=== PATIENT | female | born 1935 | race Caucasian/White ===

== ENCOUNTER 2017-04-30 20:53 | Inpatient (IN) | payer MEDICARE, MEDICAID ==
[~2017-04-30] VITALS: Ht 162.6 cm; Wt 65.0 kg
[~2017-04-30 20:53] MED LIST: FLO0.4C PO; GLIM1TAB46 PO; LOSA25TA96 PO; OXYB5TAB11 PO
[2017-04-30 21:36] LABS: BASOPHILS % (AUTO) 0.3 % (0-1); EOSINOPHILS # (AUTO) 0.2 X10'3 (0-0.9); EOSINOPHILS % (AUTO) 1.9 % (0-6); HEMOGLOBIN 11.4 g/dl (12.0-16.0); LYMPHOCYTES # (AUTO) 1.7 X10'3 (1.1-4.8); LYMPHOCYTES % (AUTO) 14.6 % (21-51); MEAN CORPUSCULAR HEMOGLOBIN 29.7 PG (27.0-31.0); MEAN CORPUSCULAR HGB CONC 34.7 % (33.0-36.5); MEAN CORPUSCULAR VOLUME 85.5 FL (78-98); MEAN PLATELET VOLUME 8.9 FL (7.4-10.4); MONOCYTES % (AUTO) 8.7 % (2-12); NEUTROPHILS # (AUTO) 8.9 X10'3 (1.8-7.7); NEUTROPHILS % (AUTO) 74.5 % (42-75); PLATELET COUNT 197 X10'3 (140-440); RED BLOOD COUNT 3.86 X10'6 (4.20-5.60); RED CELL DISTRIBUTION WIDTH 13.3 % (11.5-14.5); WHITE BLOOD COUNT 11.9 X10'3 (4.5-11.0)
[2017-04-30 21:48] LABS: INR 2.5 INR; PARTIAL THROMBOPLASTIN TIME 39 SECONDS (22-32); PROTHROMBIN TIME 25.4 SECONDS (9.0-12.0)
[2017-04-30] MEDS ORDERED: nitroGLYCERIN 0.4mg/hour patch TD ONE (21:50)
[2017-04-30] MEDS ORDERED: aspirin 81mg tab.chew PO ONE (21:50)
[2017-04-30] MEDS ORDERED: normal saline 1000ML IV soln IVB ONE (21:50)
[2017-04-30 21:52] LABS: ALANINE AMINOTRANSFERASE 23 U/L (12-78); ALBUMIN 3.8 G/DL (3.4-5.0); ALKALINE PHOSPHATASE 47 IU/L (46-116); ANION GAP 9 (8-16); ASPARTATE AMINO TRANSFERASE 16 U/L (10-37); BILIRUBIN,TOTAL 0.4 MG/DL (0.1-1.0); BLOOD UREA NITROGEN 35 MG/DL (7-18); BUN/CREATININE RATIO 19.2 (6.6-38.0); CALCIUM 8.7 MG/DL (8.5-10.1); CHLORIDE 100 MMOL/L (99-107); CREATININE 1.82 MG/DL (0.40-0.90); GLUCOSE 111 MG/DL (70-104); SODIUM 135 MMOL/L (135-145); TOTAL CARBON DIOXIDE 25.6 MMOL/L (24-32); TOTAL PROTEIN 7.8 G/DL (6.4-8.2); eGFR 27 ML/MIN
[2017-04-30 21:59] LABS: POTASSIUM 4.6 MMOL/L (3.5-5.1)
[2017-04-30] MEDS ORDERED: SITA25TA3 PO (22:59)
[2017-04-30] MEDS ORDERED: CLOP75TA35 PO (23:00)
[2017-04-30] MEDS ORDERED: ROSU5TAB PO (23:02)
[2017-04-30] MEDS ORDERED: COU2.5T PO (23:03)
[2017-04-30] MEDS ORDERED: MULT-933 PO (23:04)
[2017-04-30] MEDS ORDERED: DOCU100P (23:05)
[2017-04-30] MEDS ORDERED: KRIL1CAP22 (23:06)
[2017-04-30] MEDS ORDERED: ASCO500C15 PO (23:07)
[2017-04-30] MEDS ORDERED: LUTE20CA PO (23:08)
[2017-05-01] MEDS ORDERED: magnesium hydroxide 30ml (MOM) UD suspension PO PRN (00:50)
[2017-05-01] MEDS ORDERED: acetaminophen 325mg tablet PO PRN (00:50)
[2017-05-01] MEDS ORDERED: mag hydrox/Alum hydrox/simeth 30ml oral suspension PO PRN (00:50)
[2017-05-01] MEDS ORDERED: ondansetron/PF 4mg/2ml inj IV PRN (00:50)
[2017-05-01] MEDS ORDERED: OXYB5TAB29 PO (06:34)
[2017-05-01] MEDS ORDERED: heparin, porcine 5000 units/ml vial SQ SCH (08:00)
[2017-05-01] MEDS ORDERED: aminophylline 250mg/10ml inj. IV PRN (08:50)
[2017-05-01] MEDS ORDERED: metoprolol tartrate 1mg/ml inj IV PRN (08:50)
[2017-05-01] MEDS ORDERED: nitroGLYCERIN 0.4mg SUBLingual tab SL PRN (08:50)
[2017-05-01] MEDS ORDERED: regadenoson 0.4mg/5ml syringe IV ONE (08:50)
[2017-05-01] MEDS: losartan 25mg tablet PO SCH (09:20)
[2017-05-01] MEDS: atorvastatin 20mg tablet PO SCH (09:20)
[2017-05-01] MEDS: multivitamins, therapeutics tablet PO SCH (09:20)
[2017-05-01] MEDS: clopidogrel 75mg tablet PO SCH (09:20)
[2017-05-01] MEDS: ascorbic acid 500mg tablet PO SCH ×2 (09:48→20:06)
[2017-05-01] MEDS: linagliptin 5mg tablet PO SCH (09:48)
[2017-05-01 10:46] LABS: HEMOGLOBIN A1C 5.6 % (4.5-6.2)
[2017-05-01 13:30] VITALS: BP 155/72
[2017-05-01 15:00] VITALS: BP 92/70
[2017-05-01] MEDS: normal saline 1000ml 1,000 ML IV SCH (17:33)
[2017-05-01 19:00] VITALS: BP 151/50
[2017-05-01] MEDS: tamsulosin 0.4mg capsule PO SCH (20:10)
[2017-05-01] MEDS: oxybutynin 5mg tablet PO SCH (20:10)
[2017-05-01] MEDS ORDERED: warfarin 2.5mg tablet PO SCH (21:00)
[2017-05-01 23:00] VITALS: BP 166/71
[2017-05-02] VITALS (13 sets, daily range): BP systolic 124–199; BP diastolic 44–96
[2017-05-02] MEDS: normal saline 1000ml 1,000 ML IV SCH ×2 (05:50→19:10)
[2017-05-02 06:40] LABS: BASOPHILS % (AUTO) 0.3 % (0-1); EOSINOPHILS # (AUTO) 0.1 X10'3 (0-0.9); HEMATOCRIT 29.6 % (35.0-45.0); HEMOGLOBIN 10.2 g/dl (12.0-16.0); LYMPHOCYTES # (AUTO) 1.2 X10'3 (1.1-4.8); LYMPHOCYTES % (AUTO) 18.4 % (21-51); MEAN CORPUSCULAR HEMOGLOBIN 29.5 PG (27.0-31.0); MEAN CORPUSCULAR HGB CONC 34.6 % (33.0-36.5); MEAN CORPUSCULAR VOLUME 85.3 FL (78-98); MONOCYTES # (AUTO) 0.7 X10'3 (0-0.9); MONOCYTES % (AUTO) 10.4 % (2-12); NEUTROPHILS # (AUTO) 4.4 X10'3 (1.8-7.7); NEUTROPHILS % (AUTO) 68.9 % (42-75); PLATELET COUNT 168 X10'3 (140-440); RED BLOOD COUNT 3.46 X10'6 (4.20-5.60); RED CELL DISTRIBUTION WIDTH 13.3 % (11.5-14.5); WHITE BLOOD COUNT 6.4 X10'3 (4.5-11.0)
[2017-05-02 06:51] LABS: INR 1.3 INR; PROTHROMBIN TIME 13.3 SECONDS (9.0-12.0)
[2017-05-02 06:53] LABS: ALANINE AMINOTRANSFERASE 21 U/L (12-78); ALBUMIN 3.2 G/DL (3.4-5.0); ALBUMIN/GLOBULIN RATIO 0.9 (1.1-1.5); ALKALINE PHOSPHATASE 39 IU/L (46-116); ANION GAP 10 (8-16); ASPARTATE AMINO TRANSFERASE 13 U/L (10-37); BILIRUBIN,TOTAL 0.6 MG/DL (0.1-1.0); BLOOD UREA NITROGEN 33 MG/DL (7-18); BUN/CREATININE RATIO 18.6 (6.6-38.0); CALCIUM 8.2 MG/DL (8.5-10.1); CHLORIDE 104 MMOL/L (99-107); CREATININE 1.77 MG/DL (0.40-0.90); GLUCOSE 110 MG/DL (70-104); POTASSIUM 4.6 MMOL/L (3.5-5.1); SODIUM 136 MMOL/L (135-145); TOTAL CARBON DIOXIDE 22.3 MMOL/L (24-32); TOTAL PROTEIN 6.7 G/DL (6.4-8.2); eGFR 27 ML/MIN
[2017-05-02] MEDS: losartan 25mg tablet PO SCH (07:51)
[2017-05-02] MEDS: linagliptin 5mg tablet PO SCH (07:51)
[2017-05-02] MEDS: multivitamins, therapeutics tablet PO SCH (07:51)
[2017-05-02] MEDS: ascorbic acid 500mg tablet PO SCH ×2 (07:51→19:01)
[2017-05-02] MEDS: atorvastatin 20mg tablet PO SCH (07:51)
[2017-05-02] MEDS: clopidogrel 75mg tablet PO SCH (07:51)
[2017-05-02] MEDS: oxybutynin 5mg tablet PO SCH ×2 (07:51→19:01)
[2017-05-02] MEDS ORDERED: regadenoson 0.4mg/5ml syringe IV ONE ×2 (08:00→09:56)
[2017-05-02] MEDS ORDERED: aminophylline inj. 0 ML IV ONE (09:56)
[2017-05-02 13:54] LABS: INR 1.3 INR; PROTHROMBIN TIME 12.9 SECONDS (9.0-12.0)
[2017-05-02] MEDS: tamsulosin 0.4mg capsule PO SCH (19:01)
[2017-05-02] MEDS ORDERED: warfarin 5mg tablet PO ONE (21:00)
[2017-05-03] VITALS (14 sets, daily range): BP systolic 110–199; BP diastolic 44–91
[2017-05-03 04:21] LABS: BASOPHILS % (AUTO) 0.4 % (0-1); EOSINOPHILS # (AUTO) 0.2 X10'3 (0-0.9); EOSINOPHILS % (AUTO) 2.4 % (0-6); HEMOGLOBIN 10.8 g/dl (12.0-16.0); LYMPHOCYTES # (AUTO) 1.3 X10'3 (1.1-4.8); MEAN CORPUSCULAR HEMOGLOBIN 29.4 PG (27.0-31.0); MEAN CORPUSCULAR HGB CONC 34.7 % (33.0-36.5); MEAN CORPUSCULAR VOLUME 84.8 FL (78-98); MEAN PLATELET VOLUME 8.5 FL (7.4-10.4); MONOCYTES # (AUTO) 0.6 X10'3 (0-0.9); NEUTROPHILS # (AUTO) 5.1 X10'3 (1.8-7.7); NEUTROPHILS % (AUTO) 71.2 % (42-75); PLATELET COUNT 184 X10'3 (140-440); RED BLOOD COUNT 3.65 X10'6 (4.20-5.60); RED CELL DISTRIBUTION WIDTH 13.6 % (11.5-14.5); WHITE BLOOD COUNT 7.2 X10'3 (4.5-11.0)
[2017-05-03 04:30] LABS: INR 1.2 INR; PROTHROMBIN TIME 12.1 SECONDS (9.0-12.0)
[2017-05-03 04:41] LABS: ALANINE AMINOTRANSFERASE 23 U/L (12-78); ALBUMIN 3.4 G/DL (3.4-5.0); ALBUMIN/GLOBULIN RATIO 0.9 (1.1-1.5); ALKALINE PHOSPHATASE 42 IU/L (46-116); ANION GAP 11 (8-16); ASPARTATE AMINO TRANSFERASE 17 U/L (10-37); BILIRUBIN,TOTAL 0.5 MG/DL (0.1-1.0); BLOOD UREA NITROGEN 34 MG/DL (7-18); CALCIUM 8.1 MG/DL (8.5-10.1); CHLORIDE 102 MMOL/L (99-107); CREATININE 1.79 MG/DL (0.40-0.90); GLUCOSE 106 MG/DL (70-104); POTASSIUM 4.4 MMOL/L (3.5-5.1); SODIUM 134 MMOL/L (135-145); TOTAL CARBON DIOXIDE 21.1 MMOL/L (24-32); eGFR 27 ML/MIN
[2017-05-03] MEDS ORDERED: fentaNYL/PF 50MCG/1 ML 2ML syringe ONE (07:28)
[2017-05-03] MEDS ORDERED: midazolam 2 mg/2 ml injection ONE (07:29)
[2017-05-03] MEDS ORDERED: LIDOcaine 1%/PF (10mg/ml) 5ml vial ONE (07:29)
[2017-05-03] MEDS ORDERED: iohexol 350MG/ML 100ml bottle IV ONE (07:29)
[2017-05-03] MEDS: losartan 25mg tablet PO SCH (07:40)
[2017-05-03] MEDS: multivitamins, therapeutics tablet PO SCH (07:40)
[2017-05-03] MEDS: atorvastatin 20mg tablet PO SCH (07:40)
[2017-05-03] MEDS: ascorbic acid 500mg tablet PO SCH ×2 (07:40→19:37)
[2017-05-03] MEDS: linagliptin 5mg tablet PO SCH (07:40)
[2017-05-03] MEDS: oxybutynin 5mg tablet PO SCH ×2 (07:40→19:37)
[2017-05-03] MEDS: clopidogrel 75mg tablet PO SCH (07:40)
[2017-05-03] MEDS ORDERED: acetylcysteine 200 MG/ml 4ml vial PO STA (07:47)
[2017-05-03] MEDS: normal saline 1000ml 1,000 ML IV SCH (09:13)
[2017-05-03] MEDS ORDERED: ondansetron/PF 4mg/2ml inj IV PRN (09:45)
[2017-05-03] MEDS ORDERED: OXAZEpam 15mg capsule PO PRN (09:45)
[2017-05-03] MEDS: acetylcysteine 200 MG/ml 4ml vial PO SCH (19:38)
[2017-05-03] MEDS: tamsulosin 0.4mg capsule PO SCH (20:43)
[2017-05-03] MEDS ORDERED: warfarin 3mg tablet PO ONE (21:00)
[2017-05-04 07:00] VITALS: BP 113/35
[2017-05-04 07:11] LABS: BASOPHILS % (AUTO) 0.2 % (0-1); EOSINOPHILS # (AUTO) 0.2 X10'3 (0-0.9); HEMATOCRIT 31.8 % (35.0-45.0); HEMOGLOBIN 11.1 g/dl (12.0-16.0); LYMPHOCYTES # (AUTO) 1.6 X10'3 (1.1-4.8); LYMPHOCYTES % (AUTO) 21.5 % (21-51); MEAN CORPUSCULAR HEMOGLOBIN 29.7 PG (27.0-31.0); MEAN CORPUSCULAR HGB CONC 34.8 % (33.0-36.5); MEAN CORPUSCULAR VOLUME 85.3 FL (78-98); MEAN PLATELET VOLUME 8.9 FL (7.4-10.4); MONOCYTES # (AUTO) 0.8 X10'3 (0-0.9); MONOCYTES % (AUTO) 10.5 % (2-12); NEUTROPHILS % (AUTO) 65.8 % (42-75); PLATELET COUNT 190 X10'3 (140-440); RED BLOOD COUNT 3.73 X10'6 (4.20-5.60); RED CELL DISTRIBUTION WIDTH 13.6 % (11.5-14.5); WHITE BLOOD COUNT 7.6 X10'3 (4.5-11.0)
[2017-05-04 07:21] LABS: INR 1.1 INR; PROTHROMBIN TIME 11.1 SECONDS (9.0-12.0)
[2017-05-04 07:39] LABS: GLUCOSE 114 MG/DL (70-104)
[2017-05-04 07:40] LABS: ALANINE AMINOTRANSFERASE 23 U/L (12-78); ALBUMIN 3.5 G/DL (3.4-5.0); ALBUMIN/GLOBULIN RATIO 0.9 (1.1-1.5); ALKALINE PHOSPHATASE 46 IU/L (46-116); ANION GAP 13 (8-16); ASPARTATE AMINO TRANSFERASE 18 U/L (10-37); BILIRUBIN,TOTAL 0.5 MG/DL (0.1-1.0); BLOOD UREA NITROGEN 31 MG/DL (7-18); BUN/CREATININE RATIO 16.4 (6.6-38.0); CALCIUM 8.4 MG/DL (8.5-10.1); CHLORIDE 98 MMOL/L (99-107); CREATININE 1.89 MG/DL (0.40-0.90); POTASSIUM 4.1 MMOL/L (3.5-5.1); SODIUM 132 MMOL/L (135-145); TOTAL CARBON DIOXIDE 21.2 MMOL/L (24-32); TOTAL PROTEIN 7.2 G/DL (6.4-8.2); eGFR 25 ML/MIN
[2017-05-04] MEDS: atorvastatin 20mg tablet PO SCH (07:48)
[2017-05-04] MEDS: clopidogrel 75mg tablet PO SCH (07:48)
[2017-05-04] MEDS: linagliptin 5mg tablet PO SCH (07:48)
[2017-05-04] MEDS: ascorbic acid 500mg tablet PO SCH (07:49)
[2017-05-04] MEDS: oxybutynin 5mg tablet PO SCH (07:49)
[2017-05-04] MEDS: losartan 25mg tablet PO SCH (07:49)
[2017-05-04] MEDS: acetylcysteine 200 MG/ml 4ml vial PO SCH (07:49)
[2017-05-04] MEDS: multivitamins, therapeutics tablet PO SCH (07:49)
[2017-05-04] MEDS ORDERED: warfarin 4mg tablet PO ONE (21:00)
== END 2017-05-04 12:50 | disposition home or self-care (01) | DRG 287 ==
LOC: ER 20:54 → ED HOLD 05-01 00:48 → PCU 3S 05-01 13:25
PROVIDERS: ADMIT Internal Medicine; ATTEND Internal Medicine
PROC: 3E073KZ Introduction of Other Diagnostic Substance into Coronary Artery, Percutaneous Approach (ICD-10-PCS; 2017-05-02)
PROC: 4A02XM4 Measurement of Cardiac Total Activity, External Approach (ICD-10-PCS; 2017-05-02)
PROC: 4A023N7 Measurement of Cardiac Sampling and Pressure, Left Heart, Percutaneous Approach (ICD-10-PCS; principal; 2017-05-03)
PROC: B2111ZZ Fluoroscopy of Multiple Coronary Arteries using Low Osmolar Contrast (ICD-10-PCS; 2017-05-03)
DX: I25.110 Atherosclerotic heart disease of native coronary artery with unstable angina pectoris (principal); E11.22 Type 2 diabetes mellitus with diabetic chronic kidney disease; N18.4 Chronic kidney disease, stage 4 (severe); E11.51 Type 2 diabetes mellitus with diabetic peripheral angiopathy without gangrene; M19.90 Unspecified osteoarthritis, unspecified site; R94.39 Abnormal result of other cardiovascular function study; D64.9 Anemia, unspecified; E78.00 Pure hypercholesterolemia, unspecified; I34.0 Nonrheumatic mitral (valve) insufficiency; I35.1 Nonrheumatic aortic (valve) insufficiency; E78.5 Hyperlipidemia, unspecified; I12.9 Hypertensive chronic kidney disease with stage 1 through stage 4 chronic kidney disease, or unspecified chronic kidney disease; J44.9 Chronic obstructive pulmonary disease, unspecified; Z90.710 Acquired absence of both cervix and uterus; Z90.49 Acquired absence of other specified parts of digestive tract; Z95.0 Presence of cardiac pacemaker; Z88.1 Allergy status to other antibiotic agents; Z88.8 Allergy status to other drugs, medicaments and biological substances; Z79.01 Long term (current) use of anticoagulants; Z79.84 Long term (current) use of oral hypoglycemic drugs; Z79.899 Other long term (current) drug therapy; Z87.891 Personal history of nicotine dependence; Z86.73 Personal history of transient ischemic attack (TIA), and cerebral infarction without residual deficits
CPT/HCPCS: 36415; 71045; 78451; 80053; 83036; 84484; 85025; 85610; 85730; 87070; 93005; 93017; 93306; 93458; 99152; 99285; A4620; A6257; A9500; C1769; J0280; J1644; J2001; J2250; J3010; J7030; Q9967

== ENCOUNTER 2017-05-06 15:53 | Outpatient (CLI) | payer MEDICARE, MEDICAID ==
[~2017-05-06 15:53] MED LIST changes: +ASCO500C15 PO; +CLOP75TA35 PO; +COU2.5T PO; +DOCU100P; -GLIM1TAB46 PO; +KRIL1CAP22; +LUTE20CA PO; +MULT-933 PO; -OXYB5TAB11 PO; +OXYB5TAB29 PO; +ROSU5TAB PO; +SITA25TA3 PO
[2017-05-06 16:40] LABS: BASOPHILS % (AUTO) 0.2 % (0-1); EOSINOPHILS # (AUTO) 0.1 X10'3 (0-0.9); EOSINOPHILS % (AUTO) 1.9 % (0-6); HEMATOCRIT 29.7 % (35.0-45.0); HEMOGLOBIN 10.3 g/dl (12.0-16.0); LYMPHOCYTES # (AUTO) 1.4 X10'3 (1.1-4.8); LYMPHOCYTES % (AUTO) 23.3 % (21-51); MEAN CORPUSCULAR HEMOGLOBIN 29.6 PG (27.0-31.0); MEAN CORPUSCULAR HGB CONC 34.8 % (33.0-36.5); MEAN PLATELET VOLUME 9.2 FL (7.4-10.4); MONOCYTES # (AUTO) 0.7 X10'3 (0-0.9); MONOCYTES % (AUTO) 10.9 % (2-12); NEUTROPHILS # (AUTO) 3.9 X10'3 (1.8-7.7); NEUTROPHILS % (AUTO) 63.7 % (42-75); PLATELET COUNT 204 X10'3 (140-440); RED BLOOD COUNT 3.49 X10'6 (4.20-5.60); RED CELL DISTRIBUTION WIDTH 13.9 % (11.5-14.5); WHITE BLOOD COUNT 6.1 X10'3 (4.5-11.0)
[2017-05-06 16:45] LABS: ALBUMIN 3.5 G/DL (3.4-5.0); ANION GAP 12 (8-16); BLOOD UREA NITROGEN 37 MG/DL (7-18); BUN/CREATININE RATIO 18.1 (6.6-38.0); CALCIUM 8.8 MG/DL (8.5-10.1); CHLORIDE 99 MMOL/L (99-107); CREATININE 2.04 MG/DL (0.40-0.90); GLUCOSE 105 MG/DL (70-104); POTASSIUM 4.4 MMOL/L (3.5-5.1); SODIUM 134 MMOL/L (135-145); TOTAL CARBON DIOXIDE 23.5 MMOL/L (24-32); eGFR 23 ML/MIN
== END 2017-05-06 23:59 | disposition home or self-care (01) ==
LOC: LAB 15:53
PROVIDERS: ATTEND Internal Medicine
DX: I20.9 Angina pectoris, unspecified (principal)
CPT/HCPCS: 36415; 80048; 85025

== ENCOUNTER 2018-06-10 13:45 | Emergency (ER) | payer MEDICARE, MEDICAID ==
[~2018-06-10] VITALS: Ht 162.6 cm; Wt 67.3 kg
[~2018-06-10 13:45] MED LIST changes: -KRIL1CAP22; +KRIL1CAP22 PO
[2018-06-10 14:13] VITALS: BP 120/50
[2018-06-10] MEDS ORDERED: TRAZ-219 PO (15:22)
[2018-06-10] MEDS ORDERED: ATOR20TA66 PO (15:22)
[2018-06-10] MEDS ORDERED: METO25TA6 PO (15:25)
[2018-06-10] MEDS ORDERED: METO50TA17 PO (15:39)
[2018-06-10] MEDS ORDERED: DOCU-28 PO (15:39)
[2018-06-10 15:55] LABS: BASOPHILS % (AUTO) 0.3 % (0-1); EOSINOPHILS # (AUTO) 0.1 X10'3 (0-0.9); EOSINOPHILS % (AUTO) 0.8 % (0-6); LYMPHOCYTES # (AUTO) 0.9 X10'3 (1.1-4.8); LYMPHOCYTES % (AUTO) 9.8 % (21-51); MEAN CORPUSCULAR HEMOGLOBIN 28.7 PG (27.0-31.0); MEAN CORPUSCULAR HGB CONC 33.5 g/dL (33.0-36.5); MEAN CORPUSCULAR VOLUME 85.9 FL (78-98); MEAN PLATELET VOLUME 7.9 FL (7.4-10.4); MONOCYTES # (AUTO) 0.8 X10'3 (0-0.9); MONOCYTES % (AUTO) 9.1 % (2-12); NEUTROPHILS # (AUTO) 7.1 X10'3 (1.8-7.7); PLATELET COUNT 299 X10'3 (140-440); RED BLOOD COUNT 3.14 X10'6 (4.20-5.60); RED CELL DISTRIBUTION WIDTH 14.8 % (11.5-14.5); WHITE BLOOD COUNT 8.9 X10'3 (4.5-11.0)
[2018-06-10 16:09] LABS: ALANINE AMINOTRANSFERASE 17 U/L (12-78); ALBUMIN/GLOBULIN RATIO 0.7 (1.1-1.5); ALKALINE PHOSPHATASE 50 IU/L (46-116); ANION GAP 6 (8-16); ASPARTATE AMINO TRANSFERASE 16 U/L (10-37); BILIRUBIN,TOTAL 0.2 MG/DL (0.1-1.0); BLOOD UREA NITROGEN 36 MG/DL (7-18); BUN/CREATININE RATIO 14.1 (6.6-38.0); CALCIUM 8.9 MG/DL (8.5-10.1); CHLORIDE 100 MMOL/L (99-107); CREATININE 2.55 MG/DL (0.40-0.90); POTASSIUM 4.7 MMOL/L (3.5-5.1); SODIUM 133 MMOL/L (135-145); TOTAL CARBON DIOXIDE 26.8 MMOL/L (24-32); TOTAL PROTEIN 7.5 G/DL (6.4-8.2); eGFR 18 ML/MIN
[2018-06-10 16:12] LABS: GLUCOSE 121 MG/DL (70-104)
[2018-06-10 16:18] LABS: PROTHROMBIN TIME 71.3 SECONDS (9.0-12.0)
[2018-06-10 16:21] LABS: INR 7.9 INR
[2018-06-10] MEDS ORDERED: phytonadione inj. 5 MG in normal saline 100ml IV soln 99.5 ML IV ONE (16:45)
[2018-06-10] MEDS ORDERED: normal saline 1000ML IV soln IVB ONE (16:45)
--- NOTE | 2018-06-10 18:50 | NUR ---
Note pete in EDM - 06/10/18 at 1851 by ZAMZAM Patient refused strait cath at this time. State " you can take it from the diaper". No new orders.
--- NOTE | 2018-06-10 18:51 | NUR ---
Patient refused strait cath at this time. State " you can take it from the diaper". No new orders.
--- NOTE | 2018-06-10 19:03 | NUR ---
pt is refusing care - stating "I am not staying here, I want to go home" - PA aware and will speak with pt and visitor at bedside.
--- NOTE | 2018-06-10 19:09 | NUR ---
PA spoke with and they desire to leave at this time. pt will be placed up for D\C -
== END 2018-06-10 19:30 | disposition home or self-care (01) ==
LOC: ER 13:47
DX: D68.69 Other thrombophilia (principal); F03.90 Unspecified dementia, unspecified severity, without behavioral disturbance, psychotic disturbance, mood disturbance, and anxiety; I25.10 Atherosclerotic heart disease of native coronary artery without angina pectoris; E78.00 Pure hypercholesterolemia, unspecified; I12.9 Hypertensive chronic kidney disease with stage 1 through stage 4 chronic kidney disease, or unspecified chronic kidney disease; E11.22 Type 2 diabetes mellitus with diabetic chronic kidney disease; N18.9 Chronic kidney disease, unspecified; M19.90 Unspecified osteoarthritis, unspecified site; I48.91 Unspecified atrial fibrillation; Z90.49 Acquired absence of other specified parts of digestive tract; Z90.710 Acquired absence of both cervix and uterus; Z95.0 Presence of cardiac pacemaker; Z98.890 Other specified postprocedural states; Z86.73 Personal history of transient ischemic attack (TIA), and cerebral infarction without residual deficits; Z88.1 Allergy status to other antibiotic agents; Z88.8 Allergy status to other drugs, medicaments and biological substances; Z79.01 Long term (current) use of anticoagulants; Z79.899 Other long term (current) drug therapy
CPT/HCPCS: 36415; 80053; 85025; 85610; 93005; 96365; 99284; J3430; J7030

== ENCOUNTER 2019-08-19 11:41 | Inpatient (IN) | payer MEDICARE, OTHER ==
[~2019-08-19] VITALS: Ht 162.6 cm; Wt 63.6 kg
[~2019-08-19 11:41] MED LIST changes: +ATOR20TA66 PO; +DOCU-28 PO; -DOCU100P; -LOSA25TA96 PO; +METO50TA17 PO; -ROSU5TAB PO; +TRAZ-256 PO
[2019-08-19 12:28] LABS: BASOPHILS % (AUTO) 0.4 % (0-1); EOSINOPHILS # (AUTO) 0.1 X10'3 (0-0.9); EOSINOPHILS % (AUTO) 0.6 % (0-6); LYMPHOCYTES # (AUTO) 0.8 X10'3 (1.1-4.8); LYMPHOCYTES % (AUTO) 9.6 % (21-51); MEAN CORPUSCULAR HEMOGLOBIN 28.1 PG (27.0-31.0); MEAN CORPUSCULAR HGB CONC 33.2 g/dL (33.0-36.5); MEAN CORPUSCULAR VOLUME 84.7 FL (78-98); MEAN PLATELET VOLUME 8.7 FL (7.4-10.4); MONOCYTES # (AUTO) 0.9 X10'3 (0-0.9); MONOCYTES % (AUTO) 10.8 % (2-12); NEUTROPHILS # (AUTO) 6.2 X10'3 (1.8-7.7); NEUTROPHILS % (AUTO) 78.6 % (42-75); PLATELET COUNT 194 X10'3 (140-440); RED BLOOD COUNT 2.16 X10'6 (4.20-5.60); RED CELL DISTRIBUTION WIDTH 14.9 % (11.5-14.5); WHITE BLOOD COUNT 7.9 X10'3 (4.5-11.0)
[2019-08-19 12:31] LABS: HEMATOCRIT 18.3 % (35.0-45.0); HEMOGLOBIN 6.1 g/dl (12.0-16.0)
[2019-08-19 12:45] LABS: ALANINE AMINOTRANSFERASE 19 U/L (12-78); ALBUMIN 2.3 G/DL (3.4-5.0); ALBUMIN/GLOBULIN RATIO 0.5 (1.1-1.5); ALKALINE PHOSPHATASE 46 IU/L (46-116); ANION GAP 5 (8-16); ASPARTATE AMINO TRANSFERASE 16 U/L (10-37); BILIRUBIN,TOTAL 0.3 MG/DL (0.1-1.0); BLOOD UREA NITROGEN 41 MG/DL (7-18); BUN/CREATININE RATIO 13.7 (6.6-38.0); CALCIUM 8.5 MG/DL (8.5-10.1); CHLORIDE 102 MMOL/L (99-107); CREATININE 2.99 MG/DL (0.40-0.90); GLUCOSE 128 MG/DL (70-104); LIPASE 143 U/L (73-393); SODIUM 132 MMOL/L (135-145); TOTAL CARBON DIOXIDE 24.8 MMOL/L (24-32); TOTAL PROTEIN 6.6 G/DL (6.4-8.2); eGFR 15 ML/MIN
[2019-08-19] MEDS ORDERED: normal saline 1000ML IV soln IVB ONE (13:05)
[2019-08-19] MEDS ORDERED: CefTRIAXone/D5W-Rocephin 1gm 50 ML IV ONE (14:20)
[2019-08-19 14:33] LABS: CLARITY,URINE CLEAR (Clear); COLOR,URINE STRAW (Yellow); GLUCOSE, URINE NEGATIVE (Neg); KETONES,URINE NEGATIVE (Neg); LEUKOCYTE ESTERASE ,URINE TRACE (Neg); NITRITES, URINE NEGATIVE (Neg); OCCULT BLOOD,URINE NEGATIVE (Neg); PROTEIN,URINE NEGATIVE (Neg); UROBILINOGEN,URINE 0.2 E.U/dL (0.2-1.0)
[2019-08-19 14:44] LABS: UA COLLECTION TYPE STRAIGHT CATH
[2019-08-19 15:03] LABS: MUCUS STRANDS NONE SEEN /LPF (Neg); SQUAMOUS EPITHELIAL CELL,UR FEW /LPF (FEW); TRANSITIONAL EPI CELLS,URINE FEW /HPF
[2019-08-19 15:05] LABS: BACTERIA,URINE FEW /HPF (Neg); RBC,URINE 0-2 /HPF (0-2); WBC,URINE 0-4 /HPF (0-4)
[2019-08-19] MEDS ORDERED: epoetin 20,000 units/ml inj SQ ONE (15:25)
[2019-08-19] MEDS ORDERED: pantoprazole 40 MG vial IV ONE (15:35)
[2019-08-19] MEDS ORDERED: pantoprazole 40MG/NS 100ML BAG 100 ML IV ONE (15:35)
[2019-08-19 15:41] LABS: OCCULT BLOOD STOOL POSITIVE (Neg)
[2019-08-19] MEDS ORDERED: WARF3TAB56 PO (16:14)
[2019-08-19] MEDS ORDERED: VITA400T10 PO (16:14)
[2019-08-19] MEDS ORDERED: morphine 2 MG/ML inj. syringe IV PRN (16:15)
[2019-08-19] MEDS ORDERED: magnesium hydroxide 30ml (MOM) UD suspension PO PRN (16:15)
[2019-08-19] MEDS ORDERED: ondansetron/PF 4mg/2ml inj IV PRN (16:15)
[2019-08-19] MEDS ORDERED: potassium CL 10mEq/100ml bag 100 ML IV PRN ×2 (16:15)
[2019-08-19] MEDS ORDERED: acetaminophen 325mg tablet PO PRN ×2 (16:15)
[2019-08-19] MEDS ORDERED: magnesium 2GM in 50ml NS 50 ML IV PRN (16:15)
[2019-08-19] MEDS ORDERED: magnesium Cl slow-release 64mg tablet PO PRN (16:15)
[2019-08-19] MEDS ORDERED: potassium Cl 20 mEq SR tablet PO PRN ×2 (16:15)
[2019-08-19] MEDS ORDERED: magnesium 4gm in 100ml NS 100 ML IV PRN (16:15)
[2019-08-19] MEDS ORDERED: HYDROcodone/acetaminophen 5mg/325mg tablet PO PRN (16:15)
[2019-08-19] MEDS ORDERED: mag hydrox/Alum hydrox/simeth 30ml oral suspension PO PRN (16:15)
[2019-08-19] MEDS ORDERED: MESSAGE TO PHARMACY PO ONE (16:45)
[2019-08-19] MEDS ORDERED: dextrose ORAL solution 15 GM/59 ML bottle PO PRN ×2 (16:45)
[2019-08-19] MEDS ORDERED: glucagon, human recombinant 1mg kit SUBCUT PRN (16:45)
[2019-08-19] MEDS ORDERED: dextrose 50%-water 50ml dispensing syringe IV PRN ×2 (16:45)
[2019-08-19] MEDS ORDERED: insulin Lispro (HumaLOG) vial - multi-dose SQ SCH (16:45)
[2019-08-19 16:55] LABS: % IRON SATURATION 6 % (11-46); IRON 15 UG/DL (49-151); TOTAL IRON BINDING CAPACITY 248 UG/DL (259-388)
[2019-08-19 17:14] LABS: FERRITIN 14 NG/ML (8-252)
[2019-08-19 17:32] LABS: HEMOGLOBIN A1C 5.9 % (4.5-6.2)
[2019-08-19] MEDS: normal saline 1000ml 1,000 ML IV SCH (19:37)
[2019-08-19] MEDS ORDERED: docusate sodium 100mg/10ml UD cup PO SCH (20:00)
[2019-08-19] MEDS: K and/or MAG REPLACEMENT MC SCH (20:00)
[2019-08-19] MEDS: pantoprazole 40 MG vial IV SCH (20:22)
[2019-08-19] MEDS: metoprolol tartrate 25mg tablet PO SCH (20:24)
[2019-08-19 21:00] VITALS: BP 140/48
[2019-08-19] MEDS ORDERED: temazepam 15mg capsule PO PRN (21:00)
[2019-08-19] MEDS: insulin glargine (Lantus) pen - multi-dose SQ SCH (21:00)
[2019-08-19] MEDS: tamsulosin 0.4mg capsule PO SCH (21:05)
[2019-08-19] MEDS: atorvastatin 20mg tablet PO SCH (21:05)
[2019-08-19 23:09] VITALS: BP 122/54
[2019-08-20] MEDS: normal saline 1000ml 1,000 ML IV SCH (05:20)
--- NOTE | 2019-08-20 06:19 | NUR ---
Patient in room PCU 3013. I have received report from HANSEL Reyes and had the opportunity to ask questions and assume patient care. Patient awake in bed and in no acute distress.
[2019-08-20 06:42] LABS: BASOPHILS % (AUTO) 0.5 % (0-1); EOSINOPHILS # (AUTO) 0.1 X10'3 (0-0.9); EOSINOPHILS % (AUTO) 1.1 % (0-6); LYMPHOCYTES # (AUTO) 0.9 X10'3 (1.1-4.8); MEAN CORPUSCULAR HEMOGLOBIN 28.3 PG (27.0-31.0); MEAN CORPUSCULAR HGB CONC 33.7 g/dL (33.0-36.5); MEAN PLATELET VOLUME 8.9 FL (7.4-10.4); MONOCYTES # (AUTO) 0.7 X10'3 (0-0.9); MONOCYTES % (AUTO) 12.1 % (2-12); NEUTROPHILS # (AUTO) 4.1 X10'3 (1.8-7.7); NEUTROPHILS % (AUTO) 71.3 % (42-75); PLATELET COUNT 160 X10'3 (140-440); RED CELL DISTRIBUTION WIDTH 14.9 % (11.5-14.5); WHITE BLOOD COUNT 5.8 X10'3 (4.5-11.0)
[2019-08-20 06:50] LABS: ALBUMIN 2.9 G/DL (3.4-5.0); ANION GAP 9 (8-16); BLOOD UREA NITROGEN 30 MG/DL (7-18); BUN/CREATININE RATIO 11.2 (6.6-38.0); CALCIUM 8.1 MG/DL (8.5-10.1); CHLORIDE 103 MMOL/L (99-107); CREATININE 2.67 MG/DL (0.40-0.90); GLUCOSE 109 MG/DL (70-104); MAGNESIUM 1.8 MG/DL (1.5-2.4); POTASSIUM 3.8 MMOL/L (3.5-5.1); SODIUM 134 MMOL/L (135-145); TOTAL CARBON DIOXIDE 21.6 MMOL/L (24-32); eGFR 17 ML/MIN
[2019-08-20 06:59] LABS: HEMOGLOBIN 5.4 g/dl (12.0-16.0)
[2019-08-20 07:00] VITALS: BP 132/38
--- NOTE | 2019-08-20 07:07 | NUR ---
Paged Dr. Serrano regarding patient's critical H&H of .06/23. PAGER ID: [phone] MESSAGE: [id number]. [place]. Critical Hgb 5.4, Hct 16. Patient is a Latter-day. Thank you. Jennifer HAMM x [phone]
[2019-08-20] MEDS: K and/or MAG REPLACEMENT MC SCH ×2 (08:00→19:52)
[2019-08-20] MEDS ORDERED: IRON SUCROSE COMPLEX IV ONE (08:30)
[2019-08-20] MEDS ORDERED: NORMAL SALINE IV ONE (08:30)
[2019-08-20] MEDS ORDERED: epoetin 20,000 units/ml inj SQ ONE (08:30)
[2019-08-20] MEDS: metoprolol tartrate 25mg tablet PO SCH ×2 (09:09→20:00)
[2019-08-20] MEDS: folic acid/vitamin B complex w/vitamin C 0.8mg tablet PO SCH (09:09)
[2019-08-20] MEDS: docusate sod 100mg capsule PO SCH ×2 (09:09→19:52)
[2019-08-20] MEDS: pantoprazole 40 MG vial IV SCH (09:13)
[2019-08-20] MEDS: traZODone 50mg tablet PO SCH (09:13)
[2019-08-20] MEDS ORDERED: furosemide 20 MG/2 ML vial IV ONE (10:50)
[2019-08-20 11:00] VITALS: BP_SYST 118; BP_SYST 127; BP_DIAS 27; BP_DIAS 41
--- NOTE | 2019-08-20 15:02 | NUR ---
Called Dr. Palencia regarding the patient's stating that Dr. Palencia wanted to talk to him.
[2019-08-20 15:26] LABS: BASOPHILS % (AUTO) 0.3 % (0-1); EOSINOPHILS % (AUTO) 0.6 % (0-6); LYMPHOCYTES # (AUTO) 0.7 X10'3 (1.1-4.8); MEAN CORPUSCULAR HEMOGLOBIN 28.5 PG (27.0-31.0); MEAN CORPUSCULAR HGB CONC 33.6 g/dL (33.0-36.5); MEAN CORPUSCULAR VOLUME 84.6 FL (78-98); MEAN PLATELET VOLUME 9.1 FL (7.4-10.4); MONOCYTES # (AUTO) 0.8 X10'3 (0-0.9); MONOCYTES % (AUTO) 12.5 % (2-12); NEUTROPHILS # (AUTO) 4.9 X10'3 (1.8-7.7); NEUTROPHILS % (AUTO) 75.6 % (42-75); PLATELET COUNT 170 X10'3 (140-440); RED BLOOD COUNT 1.87 X10'6 (4.20-5.60); RED CELL DISTRIBUTION WIDTH 14.9 % (11.5-14.5); WHITE BLOOD COUNT 6.5 X10'3 (4.5-11.0)
[2019-08-20 15:32] LABS: HEMATOCRIT 15.9 % (35.0-45.0); HEMOGLOBIN 5.3 g/dl (12.0-16.0)
--- NOTE | 2019-08-20 15:37 | NUR ---
Paged Dr. Serrano regarding critical H&H results. Hgb 5.3 and Hct 15.9. PAGER ID: [phone] MESSAGE: [id number]. Alissa Guevara. Critical Hgb 5.3, Hct 15.9. Thank you. Jennifer HAMM x [phone]
[2019-08-20 17:20] LABS: ABSOLUTE RETICS # 117900 /CUMM (23000-93000); RED BLOOD COUNT 1.95 X10'6 (4.20-5.60)
[2019-08-20 17:36] LABS: ANISOCYTOSIS 1+; MICROCYTOSIS 1+; PLATELET ESTIMATE NORMAL; POIKILOCYTOSIS FEW; TOTAL CELLS COUNTED 100
[2019-08-20 18:00] VITALS: BP 126/43
--- NOTE | 2019-08-20 18:07 | NUR ---
Patient in room PCU 3013. I have received report from Jennifer HAMM and had the opportunity to ask questions and assume patient care.
--- NOTE | 2019-08-20 18:07 | NUR ---
Problems reprioritized. Patient report given, questions answered & plan of care reviewed with HANSEL Echols. Patient stable at transfer of care.
[2019-08-20] MEDS: pantoprazole 40mg Tablet.DR PO SCH (20:00)
--- NOTE | 2019-08-20 20:52 | NUR ---
Page Sent PAGER ID: [phone] MESSAGE: Pt in [id number] Alissa Guevara 84 F here for severe anemia, ESRD. Pt refused all medications and FSBG, pt A&O x3- Onesimo 0115
--- NOTE | 2019-08-20 20:52 | NUR ---
patient refused all night time medications, and 2100 FSBG, pt A&O x3, attempted to education pt, pt refused education, states she wants to go home.
[2019-08-20] MEDS: tamsulosin 0.4mg capsule PO SCH (21:00)
[2019-08-20] MEDS: atorvastatin 20mg tablet PO SCH (21:00)
[2019-08-20] MEDS: insulin glargine (Lantus) pen - multi-dose SQ SCH (21:00)
[2019-08-20 22:00] VITALS: BP 157/61
--- NOTE | 2019-08-20 22:47 | NUR ---
pt agreed to checking FSBG, BG at 2247 was 133, pt continues to refuse medication and education.
--- NOTE | 2019-08-20 23:13 | NUR ---
Dr. Rich notified, pt refused all medications, no orders received.
[2019-08-21 02:00] VITALS: BP 125/43
[2019-08-21 06:15] LABS: BASOPHILS % (AUTO) 0.4 % (0-1); EOSINOPHILS # (AUTO) 0.1 X10'3 (0-0.9); EOSINOPHILS % (AUTO) 0.8 % (0-6); LYMPHOCYTES % (AUTO) 10.6 % (21-51); MEAN CORPUSCULAR HGB CONC 33.5 g/dL (33.0-36.5); MEAN CORPUSCULAR VOLUME 83.6 FL (78-98); MEAN PLATELET VOLUME 9.1 FL (7.4-10.4); MONOCYTES # (AUTO) 1.1 X10'3 (0-0.9); MONOCYTES % (AUTO) 12.4 % (2-12); NEUTROPHILS # (AUTO) 6.9 X10'3 (1.8-7.7); NEUTROPHILS % (AUTO) 75.8 % (42-75); PLATELET COUNT 187 X10'3 (140-440); RED BLOOD COUNT 2.09 X10'6 (4.20-5.60); RED CELL DISTRIBUTION WIDTH 14.8 % (11.5-14.5); WHITE BLOOD COUNT 9.1 X10'3 (4.5-11.0)
--- NOTE | 2019-08-21 06:15 | NUR ---
Patient in room PCU 3013. I have received report from HANSEL Echols and had the opportunity to ask questions and assume patient care. Patient asleep in bed and in no acute distress.
--- NOTE | 2019-08-21 06:15 | NUR ---
Problems reprioritized. Patient report given, questions answered & plan of care reviewed with Jennifer HAMM.
[2019-08-21 06:21] LABS: HEMATOCRIT 17.5 % (35.0-45.0); HEMOGLOBIN 5.8 g/dl (12.0-16.0)
[2019-08-21 06:24] LABS: ALBUMIN 2.8 G/DL (3.4-5.0); ANION GAP 10 (8-16); BLOOD UREA NITROGEN 32 MG/DL (7-18); BUN/CREATININE RATIO 10.9 (6.6-38.0); CALCIUM 8.3 MG/DL (8.5-10.1); CHLORIDE 105 MMOL/L (99-107); CREATININE 2.93 MG/DL (0.40-0.90); GLUCOSE 116 MG/DL (70-104); MAGNESIUM 1.8 MG/DL (1.5-2.4); POTASSIUM 3.7 MMOL/L (3.5-5.1); SODIUM 137 MMOL/L (135-145); eGFR 15 ML/MIN
--- NOTE | 2019-08-21 06:29 | NUR ---
Paged Dr. Rich regarding critical H&H. Hgb 5.8, Hct 17.5. PAGER ID: [phone] MESSAGE: [id number]. Alissa Guevara. Critical H&H. Hgb 5.8, Hct 17.5. Patient is Islam. Thank you. Jennifer HAMM x [phone]
[2019-08-21 07:00] VITALS: BP 142/53
[2019-08-21 07:43] VITALS: BP_SYST 142
[2019-08-21] MEDS: metoprolol tartrate 25mg tablet PO SCH (07:43)
[2019-08-21] MEDS: pantoprazole 40mg Tablet.DR PO SCH (07:43)
[2019-08-21] MEDS: folic acid/vitamin B complex w/vitamin C 0.8mg tablet PO SCH (07:43)
[2019-08-21] MEDS: traZODone 50mg tablet PO SCH (07:43)
[2019-08-21] MEDS: docusate sod 100mg capsule PO SCH (07:43)
[2019-08-21] MEDS: K and/or MAG REPLACEMENT MC SCH (07:49)
[2019-08-21] MEDS ORDERED: epoetin 20,000 units/ml inj SQ ONE (11:00)
--- NOTE | 2019-08-21 11:58 | NUR ---
Waiting for pharmacy to finish with deborah to administer medication.
[2019-08-21] MEDS: iron sucrose complex injection 200 MG in normal saline 100ml IV soln 100 ML IV SCH ×2 (12:16→16:02)
--- NOTE | 2019-08-21 12:46 | NUR ---
Abelardo at the bedside.
[2019-08-21] MEDS ORDERED: CefTRIAXone 2gm/D5W 50ml 50 ML IV ONE (15:55)
[2019-08-21 16:20] LABS: BASOPHILS % (AUTO) 0.4 % (0-1); EOSINOPHILS % (AUTO) 0.4 % (0-6); LYMPHOCYTES # (AUTO) 0.7 X10'3 (1.1-4.8); LYMPHOCYTES % (AUTO) 6.7 % (21-51); MEAN CORPUSCULAR HEMOGLOBIN 27.8 PG (27.0-31.0); MEAN CORPUSCULAR HGB CONC 33.1 g/dL (33.0-36.5); MEAN CORPUSCULAR VOLUME 83.9 FL (78-98); MONOCYTES # (AUTO) 1.2 X10'3 (0-0.9); MONOCYTES % (AUTO) 11.7 % (2-12); NEUTROPHILS # (AUTO) 8.2 X10'3 (1.8-7.7); NEUTROPHILS % (AUTO) 80.8 % (42-75); PLATELET COUNT 208 X10'3 (140-440); RED BLOOD COUNT 2.25 X10'6 (4.20-5.60); WHITE BLOOD COUNT 10.2 X10'3 (4.5-11.0)
[2019-08-21 16:22] LABS: HEMATOCRIT 18.9 % (35.0-45.0); HEMOGLOBIN 6.3 g/dl (12.0-16.0)
--- NOTE | 2019-08-21 16:24 | NUR ---
Paged Dr. Serrano regarding patient's critical H&H. Hgb 6.3 and Hct 18.9. PAGER ID: [phone] MESSAGE: [id number]. Alissa Guevara. Critical results of Hgb 6.3, and Hct 18.9. Thank you. Jennifer HAMM x [phone]
--- NOTE | 2019-08-21 16:42 | NUR ---
Iron infusion administered late because patient's IV was infiltrated and was waiting for another IV to be placed before starting the iron infusion.
--- NOTE | 2019-08-21 16:46 | NUR ---
Rocephin not administered yet because Iron infusion is not done.
--- NOTE | 2019-08-21 18:21 | NUR ---
Patient in room PCU 3013. I have received report from HANSEL Rodriguez and had the opportunity to ask questions and assume patient care.
--- NOTE | 2019-08-21 18:21 | NUR ---
Problems reprioritized. Patient report given, questions answered & plan of care reviewed with HANSEL Dukes. Patient stable at transfer of care.
--- NOTE | 2019-08-21 18:42 | NUR ---
Paged Dr. Serrano regarding patient wanting to leave. PAGER ID: [phone] MESSAGE: [id number]. Alissa Guevara. Patient is adamant on leaving and wants to leave. Thank you. Jennifer HAMM x [phone]
--- NOTE | 2019-08-21 19:20 | NUR ---
Pt removed her tele monitor herself - removed all the leads. Encouraged pt to have it on while she still in the hospital, but patient kept on refusing as she wanted to go home.
--- NOTE | 2019-08-21 19:49 | NUR ---
Page Sent promotional table spacer PAGER ID: [phone] MESSAGE: [id number] - Ismael, 84F - Severe Anemia, ESRD - Pt and family desires discharge orders instead of AMA. HGB increased to 6.3 as required prior to discharge per day Magu. Intesivist will not discharge as they are consulting. [phone] Brody HAMM Talked with patient family member about patient course of stay. Family member and patient desiring discharge orders without need to AMA.
--- NOTE | 2019-08-21 20:10 | NUR ---
Patient wanted to leave AMA. Mira spoke to the pt and her . signed AMA. Pt and family were informed and aware of the risks of leaving the hospital against medical advice. Dr. Hartmann was notified. IV access discontinued. Pt's belongings were with the pt/. Pt left the hospital without signs of distress.
== END 2019-08-21 20:00 | disposition left against medical advice (07) | DRG 193 ==
LOC: ER 11:42 → UNDOADMIN 16:11 → ED HOLD 16:11 → PCU 3S 20:57 → ED HOLD 08-20 08:14
PROVIDERS: ADMIT Internal Medicine; ATTEND Internal Medicine
DX: J18.9 Pneumonia, unspecified organism (principal); N18.6 End stage renal disease; J44.0 Chronic obstructive pulmonary disease with (acute) lower respiratory infection; I12.0 Hypertensive chronic kidney disease with stage 5 chronic kidney disease or end stage renal disease; K57.90 Diverticulosis of intestine, part unspecified, without perforation or abscess without bleeding; D63.1 Anemia in chronic kidney disease; E11.22 Type 2 diabetes mellitus with diabetic chronic kidney disease; E78.00 Pure hypercholesterolemia, unspecified; E78.5 Hyperlipidemia, unspecified; Z53.29 Procedure and treatment not carried out because of patient's decision for other reasons; M19.90 Unspecified osteoarthritis, unspecified site; R19.5 Other fecal abnormalities; I25.10 Atherosclerotic heart disease of native coronary artery without angina pectoris; I48.91 Unspecified atrial fibrillation; Z79.01 Long term (current) use of anticoagulants; Z86.73 Personal history of transient ischemic attack (TIA), and cerebral infarction without residual deficits; Z90.710 Acquired absence of both cervix and uterus; Z88.8 Allergy status to other drugs, medicaments and biological substances; Z90.49 Acquired absence of other specified parts of digestive tract; Z95.0 Presence of cardiac pacemaker; Z79.899 Other long term (current) drug therapy
CPT/HCPCS: 36415; 70450; 71045; 74176; 80048; 80053; 81001; 82140; 82272; 82728; 82948; 83036; 83520; 83540; 83550; 83605; 83690; 83735; 84145; 85007; 85025; 85045; 85610; 87040; 87081; 87088; 93005; 93306; 97110; 97116; 97162; 97530; 99285; C9113; G0378; J0696; J1756; J1815; J1940; J7030; J7050; Q4081

== ENCOUNTER 2019-12-06 11:53 | Emergency (ER) | payer MEDICARE, MEDICAID ==
[~2019-12-06] VITALS: Ht 162.6 cm; Wt 65.5 kg
[~2019-12-06 11:53] MED LIST changes: -ASCO500C15 PO; -COU2.5T PO; -DOCU-28 PO; +VITA400T10 PO; +WARF3TAB56 PO
[2019-12-06] MEDS ORDERED: morphine 2 MG/ML inj. syringe IV ONE (12:40)
[2019-12-06] MEDS ORDERED: ondansetron/PF 4mg/2ml inj IV ONE (12:40)
--- NOTE | 2019-12-06 12:41 | NUR ---
pt to CT
--- NOTE | 2019-12-06 13:05 | NUR ---
pt is Jehovah-witness, no blood products
--- NOTE | 2019-12-06 13:12 | NUR ---
pt is resting quietly on gurney, resp even and unlabored, family at bedside--pt is confused sometimes, report to Savanna HAMM
--- NOTE | 2019-12-06 13:32 | NUR ---
Type and Screen at patient request due to Christianity preference for no blood transfusion
[2019-12-06 13:33] LABS: BASOPHILS % (AUTO) 0.4 % (0-1); EOSINOPHILS # (AUTO) 0.1 X10'3 (0-0.9); EOSINOPHILS % (AUTO) 0.7 % (0-6); HEMATOCRIT 34.9 % (35.0-45.0); HEMOGLOBIN 11.6 g/dl (12.0-16.0); LYMPHOCYTES % (AUTO) 11.8 % (21-51); MEAN CORPUSCULAR HEMOGLOBIN 28.3 PG (27.0-31.0); MEAN CORPUSCULAR HGB CONC 33.2 g/dL (33.0-36.5); MEAN CORPUSCULAR VOLUME 85.3 FL (78-98); MEAN PLATELET VOLUME 8.2 FL (7.4-10.4); MONOCYTES # (AUTO) 0.8 X10'3 (0-0.9); MONOCYTES % (AUTO) 9.5 % (2-12); NEUTROPHILS # (AUTO) 6.8 X10'3 (1.8-7.7); NEUTROPHILS % (AUTO) 77.6 % (42-75); PLATELET COUNT 150 X10'3 (140-440); RED BLOOD COUNT 4.09 X10'6 (4.20-5.60); RED CELL DISTRIBUTION WIDTH 15.8 % (11.5-14.5); WHITE BLOOD COUNT 8.8 X10'3 (4.5-11.0)
[2019-12-06 13:47] LABS: ALANINE AMINOTRANSFERASE 19 U/L (12-78); ALBUMIN 3.6 G/DL (3.4-5.0); ALKALINE PHOSPHATASE 53 IU/L (46-116); ANION GAP 9 (8-16); ASPARTATE AMINO TRANSFERASE 18 U/L (10-37); BILIRUBIN,TOTAL 0.4 MG/DL (0.1-1.0); BLOOD UREA NITROGEN 33 MG/DL (7-18); BUN/CREATININE RATIO 13.8 (6.6-38.0); CALCIUM 9.2 MG/DL (8.5-10.1); CHLORIDE 100 MMOL/L (99-107); CREATININE 2.39 MG/DL (0.40-0.90); GLUCOSE 141 MG/DL (70-104); POTASSIUM 4.3 MMOL/L (3.5-5.1); SODIUM 132 MMOL/L (135-145); TOTAL CARBON DIOXIDE 23.3 MMOL/L (24-32); TOTAL PROTEIN 7.2 G/DL (6.4-8.2); eGFR 19 ML/MIN
[2019-12-06 13:51] LABS: TROPONIN I < 0.04 NG/ML (0.0-0.05)
[2019-12-06] MEDS ORDERED: HYDROcodone/acetaminophen 5mg/325mg tablet PO ONE ×2 (14:00→14:20)
[2019-12-06] MEDS ORDERED: ONDA4TAB6 PO (14:02)
[2019-12-06] MEDS ORDERED: HYDR-4383 PO (14:02)
[2019-12-06] MEDS ORDERED: DOCU-148 PO (14:02)
[2019-12-06 14:39] VITALS: BP 139/67
== END 2019-12-06 14:36 | disposition home or self-care (01) ==
LOC: ER 11:54
DX: S42.201A Unspecified fracture of upper end of right humerus, initial encounter for closed fracture (principal); R53.1 Weakness; R26.9 Unspecified abnormalities of gait and mobility; N18.9 Chronic kidney disease, unspecified; I25.10 Atherosclerotic heart disease of native coronary artery without angina pectoris; E78.00 Pure hypercholesterolemia, unspecified; I10 Essential (primary) hypertension; J44.9 Chronic obstructive pulmonary disease, unspecified; E11.22 Type 2 diabetes mellitus with diabetic chronic kidney disease; M19.90 Unspecified osteoarthritis, unspecified site; Z86.73 Personal history of transient ischemic attack (TIA), and cerebral infarction without residual deficits; Z90.49 Acquired absence of other specified parts of digestive tract; Z90.710 Acquired absence of both cervix and uterus; Z95.0 Presence of cardiac pacemaker; Z72.89 Other problems related to lifestyle; Z88.8 Allergy status to other drugs, medicaments and biological substances; Z79.01 Long term (current) use of anticoagulants; Z79.899 Other long term (current) drug therapy; W19.XXXA Unspecified fall, initial encounter; Y93.89 Activity, other specified; Y92.89 Other specified places as the place of occurrence of the external cause; Y99.8 Other external cause status
CPT/HCPCS: 36415; 70450; 71045; 73030; 80053; 84484; 85025; 85610; 96374; 96375; 99285; J2270; J2405

== ENCOUNTER 2019-12-08 01:16 | Emergency (ER) | payer MEDICARE, MEDICAID ==
[~2019-12-08] VITALS: Ht 162.6 cm; Wt 65.5 kg
[~2019-12-08 01:16] MED LIST changes: +DOCU-148 PO; +HYDR-4383 PO; +ONDA4TAB6 PO
[2019-12-08] MEDS ORDERED: ondansetron 4mg rapidly disintigrating tab PO ONE (02:35)
[2019-12-08] MEDS ORDERED: HYDROcodone/acetaminophen 5mg/325mg tablet PO ONE (02:35)
[2019-12-08] MEDS ORDERED: acetaminophen 325mg tablet PO ONE (02:35)
[2019-12-08 03:32] VITALS: BP 107/70
== END 2019-12-08 03:33 | disposition home or self-care (01) ==
LOC: ER 01:17
DX: S40.021A Contusion of right upper arm, initial encounter (principal); I25.10 Atherosclerotic heart disease of native coronary artery without angina pectoris; E78.00 Pure hypercholesterolemia, unspecified; J44.9 Chronic obstructive pulmonary disease, unspecified; M19.90 Unspecified osteoarthritis, unspecified site; I12.9 Hypertensive chronic kidney disease with stage 1 through stage 4 chronic kidney disease, or unspecified chronic kidney disease; E11.22 Type 2 diabetes mellitus with diabetic chronic kidney disease; N18.9 Chronic kidney disease, unspecified; Z90.49 Acquired absence of other specified parts of digestive tract; Z90.710 Acquired absence of both cervix and uterus; Z98.890 Other specified postprocedural states; Z95.0 Presence of cardiac pacemaker; Z72.89 Other problems related to lifestyle; Z86.73 Personal history of transient ischemic attack (TIA), and cerebral infarction without residual deficits; Z88.8 Allergy status to other drugs, medicaments and biological substances; Z79.899 Other long term (current) drug therapy; W18.39XA Other fall on same level, initial encounter; Y93.89 Activity, other specified; Y92.89 Other specified places as the place of occurrence of the external cause; Y99.8 Other external cause status
CPT/HCPCS: 29105; 99284